=== PATIENT | female | born 1985 | race American Indian/Alaskan Native ===

== ENCOUNTER 2017-02-26 20:27 | Emergency (ER) | payer OTHER ==
[2017-02-26 20:30] VITALS: RESP 16
--- NOTE | 2017-02-26 20:41 | ED PDOC ---
HPI: Back Time Seen by Provider: 02/26/17 20:29 Chief Complaint (Nursing): Back Pain Chief Complaint (Provider): low back pain History Per: Patient Additional Complaint(s): 31-year-old female with no past medical history presents to emergency department with lower back pain that started earlier today after she lifted a heavy laundry basket. Patient took ibuprofen and Flexeril but this did not help the pain. Patient states she is currently and her last period was January 17. She is not sure how many weeks she is. Patient denies any abdominal pain or vaginal bleeding upon arrival. She states she has been lying in bed all day secondary to lower back pain. She denies acute bowel or bladder dysfunction and denies any radiation of pain to lower extremities. Patient states she has had similar episodes of muscle spasms in her lower back. Past Medical History Reviewed: Historical Data, Nursing Documentation, Vital Signs Vital Signs: Last Vital Signs Temp 98.1 F 02/26/17 20:28 Pulse 92 H 02/26/17 20:28 Resp 16 02/26/17 20:28 BP 126/69 02/26/17 20:28 Pulse Ox 100 02/26/17 20:28 - Medical History PMH: Back Problems - Surgical History Surgical History: No Surg Hx - Family History Family History: States: No Known Family Hx - Living Arrangements Living Arrangements: With Family - Social History Current smoker - smoking cessation education provided: No Alcohol: None Drugs: Denies - Home Medications Home Medications: Ambulatory Orders Medication Instructions Recorded Cyclobenzaprine [Cyclobenzaprine 10 mg PO TID PRN #20 tab 02/27/17 HCl] Lidocaine 5% [Lidoderm] 1 ea TD DAILY #30 patch 02/27/17 Comb No.42/Folic Acid 1 tab PO DAILY #60 tab 02/27/17 [Prena1 Chew] - Allergies Allergies/Adverse Reactions: Allergies Allergy/AdvReac Type Severity Reaction Status Date / Time No Known Allergies Allergy Verified 02/26/17 20:28 Review of Systems ROS Statement: Except As Marked, All Systems Reviewed And Found Negative Gastrointestinal: Negative for: Abdominal Pain Genitourinary Female: Negative for: Dysuria, Frequency, Incontinence, Vaginal Discharge, Vaginal Bleeding, Pelvic Pain Musculoskeletal: Positive for: Back Pain Physical Exam - Reviewed Nursing Documentation Reviewed: Yes Vital Signs Reviewed: Yes - Physical Exam Appears: Positive for: Well, Non-toxic, No Acute Distress Skin: Positive for: Normal Color. Negative for: Rash Neck: Positive for: Normal Cardiovascular/Chest: Positive for: Regular Rate, Rhythm Respiratory: Positive for: Normal Breath Sounds Gastrointestinal/Abdominal: Positive for: Soft. Negative for: Tenderness, Distended, Guarding, Rebound Back: Positive for: Vertebral Tenderness (diffuse tenderness and muscle spasm across lower lumbar region), Muscle Spasm (lumbar region) Extremity: Positive for: Normal ROM. Negative for: Pedal Edema, Calf Tenderness Neurologic/Psych: Positive for: Alert, Oriented - Laboratory Results Result Diagrams: 02/26/17 21:34 02/26/17 21:34 - ECG O2 Sat by Pulse Oximetry: 100 Pulse Ox Interpretation: Normal - Other Rad OB TV US X-Ray: Read By Radiologist X-Ray Interpretation: see below Medical Decision Making Medical Decision Making: Impression: lumbar strain Plan: test PO tylenol PO flexeril Lidoderm patch US: FINDINGS: Gestation: There is an early intrauterine with 5 mm gestational sac. No pole or yolk sac are identified at this time. Placenta/amniotic fluid: Cannot be adequately evaluated due to the early gestational age. Uterus/cervix: The uterus measures 9.1 x 4.2 x 5.9 cm. No myometrial mass. Ovaries: The RIGHT ovary measures 2.5 x 1.7 x 1.7 cm. The LEFT ovary measures 2.5 x 1.8 x 2.1 cm. No mass. Free fluid: There is free fluid in the pelvis. IMPRESSION: Early intrauterine ; pole not identified probably due to early gestational age. Followup as clinically warranted. Patient states the back pain is somewhat improved after meds given. She does still have some pain and is feeling better. She is ambulatory with steady gait. Patient aware of ultrasound findings and remaining diagnostic test results. Patient given prescription for vitamins and Flexeril. She was advised to continue with [id number] Tylenol every 4-6 hours for pain. Lidoderm patch prescriptions also provided. Patient has follow-up next week with her OB. Disposition - Clinical Impression Clinical Impression: Back pain, - Patient ED Disposition Is Patient to be Admitted: No Counseled Patient/Family Regarding: Studies Performed, Diagnosis, Need For Followup, Rx Given - Disposition [facility] Disposition: Routine/Home Disposition Time: 00:19 Condition: STABLE Additional Instructions: Take [id number] Tylenol along with prescription medications as directed as needed for pain. Take vitamins as directed. Follow up next week with [facility]. Prescriptions: Cyclobenzaprine [Cyclobenzaprine HCl] 10 mg PO TID PRN #20 tab PRN Reason: Muscle Spasm Lidocaine 5% [Lidoderm] 1 ea TD DAILY #30 patch Comb No.42/Folic Acid [Prena1 Chew] 1 tab PO DAILY #60 tab Instructions: Back Pain (ED), (ED) Forms: [employer] (Icelandic) Results - Lab Results Lab Results: 02/26/17 02/26/17 21:34 21:34 WBC 12.0 H RBC 4.29 Hgb 13.1 Hct 38.5 MCV 89.6 MCH 30.5 MCHC 34.0 RDW 14.4 Plt Count 285 MPV 8.9 Neut % (Auto) 69.4 Lymph % (Auto) 24.0 Tate % (Auto) 6.0 Eos % (Auto) 0.4 Baso % (Auto) 0.2 Neut # 8.3 H Lymph # 2.9 Tate # 0.7 Eos # 0.1 Baso # 0.0 Sodium 140 Potassium 3.9 Chloride 106 Carbon Dioxide 23 Anion Gap 15 BUN 6 L Creatinine 0.7 Est GFR ( Amer) > 60 Est GFR (Non-Af Amer) > 60 Random Glucose 84 Calcium 9.2 Total Bilirubin 0.7 AST 21 ALT 23 Alkaline Phosphatase 85 Total Protein 7.4 Albumin 4.1 Globulin 3.3 Albumin/Globulin Ratio 1.3 Beta HCG, Quant 3023.10
[2017-02-26] MEDS ORDERED: Lidocaine 5% Patch TD STA (21:04)
[2017-02-26] MEDS ORDERED: Lidocaine 5% Patch TD ONE (21:15)
[2017-02-26 21:45] LABS: BASO % 0.2 % (0.0-2.0); EOS # 0.1 K/uL (0.0-0.7); EOS % 0.4 % (0.0-4.0); HEMATOCRIT 38.5 % (34.0-47.0); LYMPH # 2.9 K/uL (1.0-4.3); MEAN CELL VOLUME 89.6 fl (81.0-99.0); MEAN CORPUSCULAR HEMOGLOBIN 30.5 pg (27.0-31.0); MEAN PLATELET VOLUME 8.9 fl (7.2-11.7); MONO # 0.7 K/uL (0.0-0.8); NEUT # 8.3 K/uL (1.8-7.0); NEUT % 69.4 % (50.0-75.0); RED CELL DISTRIBUTION WIDTH 14.4 % (11.5-14.5)
[2017-02-26 21:50] LABS: ALB/GLOB RATIO 1.3 (1.0-2.1); ALKALINE PHOSPHATASE 85 U/L (38-126); ALT/SGPT 23 U/L (9-52); AST/SGOT 21 U/L (14-36); BILIRUBIN,TOTAL 0.7 mg/dl (0.2-1.3); BLOOD UREA NITROGEN 6 mg/dl (7-17); CALCIUM 9.2 mg/dL (8.4-10.2); CARBON DIOXIDE 23 mmol/L (22-30); CHLORIDE 106 mmol/L (98-107); GFR AFRICAN-AMERICAN > 60; GLUCOSE,RANDOM 84 mg/dL (65-105); POTASSIUM 3.9 MMOL/L (3.6-5.0); SODIUM 140 mmol/l (132-148); TOTAL PROTEIN 7.4 G/DL (6.3-8.2)
[2017-02-27 00:38] VITALS: BP 130/65; PULSE 81; TEMP 98; O2SAT 99
--- NOTE | 2017-02-27 11:02 | US ---
HISTORY: Early (positive test) presenting with back pain. Menstrual status: LMP 01/17/2017 Relevant medical history: History of scoliosis. COMPARISON: None available. TECHNIQUE: Standard protocol for this study/examination. FINDINGS: UTERUS: Measures 4.2 x 5.9 x 9.1 cm. Normal in size and appearance. No fibroid or other mass lesion seen. ENDOMETRIUM: Gestational sac measurement 5.1 mm below threshold for calculation of reliable gestational age. No pole or yolk sac identified CERVIX: No cervical abnormality identified. RIGHT OVARY: Measures 1.7 x 1.7 x 2.5 cm. No solid mass. Normal flow. LEFT OVARY: Measures 1.8 x 2.1 x 2.5 cm. No solid mass. Normal flow. FREE FLUID: Trace free fluid identified in the pelvis/cul de sac. Fluid ulcer adjacent to the left ovary OTHER FINDINGS: None. IMPRESSION: Presumed early intrauterine gestation. Gestational sac without evidence of yolk sac or pole. Additional benign and/or incidental findings described above.
== END 2017-02-27 00:43 | disposition home or self-care (01) ==
LOC: H.ER 20:27
DX: M54.5 Low back pain (principal); O26.891 Other specified pregnancy related conditions, first trimester

== ENCOUNTER 2017-10-15 18:26 | Emergency (ER) | payer OTHER ==
[2017-10-15 19:32] VITALS: BMI 30.1
[2017-10-15 20:29] LABS: ALBUMIN 3.4 g/dL (3.5-5.0); ALT/SGPT 31 U/L (9-52); AST/SGOT 30 U/L (14-36); BLOOD UREA NITROGEN 3 mg/dl (7-17); CALCIUM 9.6 mg/dL (8.4-10.2); GFR AFRICAN-AMERICAN > 60; GFR NON-AFRICAN AMERICAN > 60; HEMOGLOBIN 12.9 g/dL (12.0-16.0); MEAN CELL VOLUME 95.3 fl (81.0-99.0); MEAN CORPUSCULAR HEMOGLOBIN 32.3 pg (27.0-31.0); MEAN CORPUSCULAR HGB CONC 33.9 g/dL (33.0-37.0); RBC 3.99 Mil/uL (3.80-5.20); RED CELL DISTRIBUTION WIDTH 16.8 % (11.5-14.5); WHITE BLOOD COUNT 8.4 K/uL (4.8-10.8)
[2017-10-15 20:41] LABS: SQUAMOUS EPITHIAL 28 /hpf (0-5); URINE BACTERIA OCC (<OCC); URINE BILIRUBIN NEGATIVE (NEGATIVE); URINE BLOOD NEGATIVE (NEGATIVE); URINE CLARITY CLOUDY (Clear); URINE COLOR YELLOW (YELLOW); URINE GLUCOSE (UA) NEG (Normal); URINE LEUKOCYTE ESTERASE MOD Leu/uL (Negative); URINE PROTEIN NEGATIVE (NEGATIVE)
--- NOTE | 2017-10-15 22:18 | US ---
EXAM: US Uterus, Limited CLINICAL HISTORY: 31 years old, female; Signs and symptoms; Other: Decreased movement; TECHNIQUE: Real-time ultrasound of the maternal uterus (limited) with image documentation. COMPARISON: No relevant prior studies available. FINDINGS: Fetus: Single live intrauterine gestation. No gross anomaly is appreciated. Gestational age: Estimated gestational age of 38 weeks 5 days by dates. Position: Cephalic. Heart rate: heart rate of 139 beats per minute. Placenta: Fundal placenta. No placenta previa or abruption. Amniotic fluid: RAHEL = 20.7 cm. IMPRESSION: 1. Single live intrauterine gestation. EXAM: US Biophysical Profile Without Non-Stress Testing CLINICAL HISTORY: 31 years old, female; Signs and symptoms; Other: Decreased movement; TECHNIQUE: Real-time ultrasound of the maternal pelvis for biophysical profile evaluation with image documentation. COMPARISON: No relevant prior studies available. FINDINGS: breathing movements: Present. Score 2/2. Gross body movements: Present. Score 2/2. tone: Present. Score 2/2. Qualitative amniotic fluid volume: Within normal limits. Score 2/2. IMPRESSION: Normal biophysical profile ultrasound. Score 8/8.
--- NOTE | 2017-10-15 22:26 | OBHP ---
Datetime: 10/15/2017 19:35 IP Adm Impression: Term, intrauterine IP Admit Plan: Observation/Evaluation Admit Comment, IP Provider: 31 yo , IUP at 38.5 weeks gestational age presented to [facility] due to B P reading at home 140/96. Denies dizziness, blurry vision, headache, epigastric pain, vaginal bleedin g, regular contractions, loss of fluid. States she felt movement earlier in the day but less at this time. ROS: as per HPI, denies burning with urination, chest pain, shortness of breath, nausea/vomiting/G I upset. OBhx: G1 PMH: anxiety Past surg hx: none Fam hx: htn, dm2 in multiple family members Social hx: denies tobacco, alcohol, drug use Meds: PNV, ferrous sulfate, was taking lexapro for anxiety early in Allergies: NKDA care: has been w/ Dr. Kim until now; has appt with Dr. Long tomorrow States has been uncomplicated thus far. GBS+ bacteruria; rubella immune, 3rd trimester RPR neg, 3rd trimester HIV neg. PE: BP 121/84 FHR baseline 140, reactive Gen: alert, awake Resp: clear breath sounds, normal effort CV: S1S2, RRR Abd: gravid, +bowel sounds, no epigastric or RUQ tenderness Ext: 1+ pitting edema, no tenderness, no swelling SVE: closed, thick, -3 A/P 31 yo with IUP at 38.5 weeks gestational age Monitor BP; Lab: CBC, CMP, LDH, type and screen, urinalysis. U/s: BPP with RAHEL level Re-eval Pt seen/discussed w/ Dr. Kim Re-eval 21:55 LDH low 280, LFT wnl, Hgb 12.9, Plt 204. Urine pos for leuk esterase, occ bacteria, neg nitrates. BPP 8/8, RAHEL 21. BPs have [id number] 130s/80s while on monitor Clean catch urine sample sent for cx Reviewed labs w/ patient, gave preeclampsia precautions, labor precautions, kick counts To follow up w/ Dr. Hanna in office tomorrow Pt seen/discussed w/ Dr. Judy [email or web address] ob attending addendum: pt seen _ examined by me. agree w/ above s:denies h/a, scotomata, ruq/midepigastric pain,n/v, decreased fm, srom or vag bleeding o:bpp 8/8 rahel 20 vtx p: d/c home preeclamptic precautions urine cx- pt advised to f/u for results w/ dr hanna kick counts _ labor precautions Pelvic Type - PN: Adequate Extremities - PN: Normal Abdomen - PN: Normal Back - PN: Normal Breast - PN: Not Done Lungs - PN: Normal Heart - PN: Normal Thyroid - PN: Not Done Neurologic - PN: Normal HEENT - PN: Normal General - PN: Normal FHR - Baseline A Provider: 140 Membranes, Provider: Intact Contraction Comments Provider: not appreciated by pt Comments, ACOG Physical Exam: SVE: closed, thick, -3 EGA AdmitDate IP: 38.5 Vital Signs Provider: Reviewed IP Chief Complaint: Signs/Symptoms Gestational HTN NICHD Variability Prov Fetus A: Moderate 6-25bpm NICHD Accel Fetus A IP Provider: [id number] FHR Category Provider Fetus A: Category I NICHD Decel Fetus A IP Provider: None Dilatation, Provider: 0 Effacement, Provider: thick Station, Provider: -3 Genitourinary Exam: Normal
[2017-10-16 02:05] VITALS: BP 132/86; PULSE 85; RESP 18; TEMP 98.3; O2SAT 100
== END 2017-10-15 22:03 | disposition home or self-care (01) ==
LOC: H.EROB2 18:26
DX: O26.93 Pregnancy related conditions, unspecified, third trimester (principal); I10 Essential (primary) hypertension; Z3A.38 38 weeks gestation of pregnancy

== ENCOUNTER 2017-10-27 07:00 | Inpatient (IN) | payer OTHER ==
[2017-10-27 07:34] VITALS: BMI 31.1
[2017-10-27] MEDS: Lactated Ringer's 1,000 ML IV SCH ×2 (07:50→23:11)
[2017-10-27 08:31] LABS: BASO % 0.5 % (0.0-2.0); EOS % 0.4 % (0.0-4.0); HEMOGLOBIN 13.1 g/dL (12.0-16.0); LYMPH # 2.2 K/uL (1.0-4.3); MEAN CELL VOLUME 91.8 fl (81.0-99.0); MEAN CORPUSCULAR HEMOGLOBIN 31.9 pg (27.0-31.0); MEAN CORPUSCULAR HGB CONC 34.8 g/dL (33.0-37.0); MEAN PLATELET VOLUME 10.4 fl (7.2-11.7); MONO # 0.6 K/uL (0.0-0.8); MONO % 6.5 % (0.0-10.0); NEUT # 7.1 K/uL (1.8-7.0); NEUT % 70.6 % (50.0-75.0); NRBC % 0.3 % (0.0-0.0); RBC 4.1 Mil/uL (3.80-5.20)
[2017-10-27] MEDS ORDERED: Fentanyl/Bupivacaine HCl 250 ML EPI ONE (16:02)
[2017-10-27] MEDS ORDERED: Oxytocin 30 units/LR 500ML 30 U/500 ML BAG IV ONE (18:18)
[2017-10-27] MEDS ORDERED: Lidocaine 2% Inj (20ml) ONE (21:53)
--- NOTE | 2017-10-27 22:35 | OBADHP ---
Datetime: 10/15/2017 19:35 Admit Comment, IP Provider: 31 yo , IUP at 38.5 weeks gestational age presented to [facility] due to B P reading at home 140/96. Denies dizziness, blurry vision, headache, epigastric pain, vaginal bleedin g, regular contractions, loss of fluid. States she felt movement earlier in the day but less at this time. ROS: as per HPI, denies burning with urination, chest pain, shortness of breath, nausea/vomiting/G I upset. OBhx: G1 PMH: anxiety Past surg hx: none Fam hx: htn, dm2 in multiple family members Social hx: denies tobacco, alcohol, drug use Meds: PNV, ferrous sulfate, was taking lexapro for anxiety early in Allergies: NKDA care: has been w/ Dr. Kim until now; has appt with Dr. Long tomorrow States has been uncomplicated thus far. GBS+ bacteruria; rubella immune, 3rd trimester RPR neg, 3rd trimester HIV neg. PE: BP 121/84 FHR baseline 140, reactive Gen: alert, awake Resp: clear breath sounds, normal effort CV: S1S2, RRR Abd: gravid, +bowel sounds, no epigastric or RUQ tenderness Ext: 1+ pitting edema, no tenderness, no swelling SVE: closed, thick, -3 A/P 31 yo with IUP at 38.5 weeks gestational age Monitor BP; Lab: CBC, CMP, LDH, type and screen, urinalysis. U/s: BPP with RAHEL level Re-eval Pt seen/discussed w/ Dr. Kim Re-eval 21:55 LDH low 280, LFT wnl, Hgb 12.9, Plt 204. Urine pos for leuk esterase, occ bacteria, neg nitrates. BPP 8/8, RAHEL 21. BPs have [id number] 130s/80s while on monitor Clean catch urine sample sent for cx Reviewed labs w/ patient, gave preeclampsia precautions, labor precautions, kick counts To follow up w/ Dr. Hanna in office tomorrow Pt seen/discussed w/ Dr. Judy [email or web address] ob attending addendum: pt seen _ examined by me. agree w/ above s:denies h/a, scotomata, ruq/midepigastric pain,n/v, decreased fm, srom or vag bleeding o:bpp 8/8 rahel 20 vtx p: d/c home preeclamptic precautions urine cx- pt advised to f/u for results w/ dr hanna kick counts _ labor precautions Pelvic Type - PN: Adequate Extremities - PN: Normal Abdomen - PN: Normal Back - PN: Normal Breast - PN: Normal Lungs - PN: Normal Heart - PN: Normal Thyroid - PN: Not Done Neurologic - PN: Normal HEENT - PN: Normal General - PN: Normal FHR - Baseline A Provider: 140 Membranes, Provider: Intact Contraction Comments Provider: not appreciated by pt Comments, ACOG Physical Exam: SVE: closed, thick, -3 Vital Signs Provider: Reviewed IP Chief Complaint: Signs/Symptoms Gestational HTN NICHD Variability Prov Fetus A: Moderate 6-25bpm NICHD Accel Fetus A IP Provider: [id number] FHR Category Provider Fetus A: Category I NICHD Decel Fetus A IP Provider: None Dilatation, Provider: 0 Effacement, Provider: thick Station, Provider: -3 Genitourinary Exam: Normal DTRs - PN: Normal EGA AdmitDate IP: 38.5 IP Adm Impression: Term, intrauterine IP Admit Plan: Observation/Evaluation
--- NOTE | 2017-10-27 22:39 | OBDS ---
MATERNAL INFORMATION Provider Comments: dewlivery of live baby girl 9/9 clear fluid first degree perineal laceratio n and repair LABOR SUMMARY EDC: 10/24/2017 00:00 No. Babies in Womb: 1 Attempted: No LABOR INFORMATION Reason for Induction: Postterm Cervical Ripening Agents: carvidil removed by dr perrin at this time Group B Beta Strep: Positive Steroids Given: None Reason Steroids Not Administered: Not Applicable MEMBRANES Membranes Rupture Method: Artificial Rupture of Membranes: 10/27/2017 14:18 Amniotic Fluid Color: Clear Amniotic Fluid Amount: Moderate Amniotic Fluid Odor: Normal VAGINAL DELIVERY Episiotomy: None Laceration Extension: N/A Laceration Type: Perineal Laceration Repair Note: repair of perineal laceration with 2-0 chromic Count Comment: correct
[2017-10-27] MEDS ORDERED: Oxycodone/Acetaminophen 5/325 mg Tab PO PRN ×2 (22:44)
[2017-10-27] MEDS ORDERED: Benzocaine/Menthol SPRAY TOP PRN (22:44)
[2017-10-28] MEDS ORDERED: Oxycodone/Acetaminophen 5/325 mg Tab PO PRN ×3 (03:20→13:41)
[2017-10-28] MEDS ORDERED: Benzocaine/Menthol SPRAY TOP PRN ×2 (03:20→13:41)
[2017-10-28 07:00] LABS: BASO % 0.2 % (0.0-2.0); HEMOGLOBIN 12.3 g/dL (12.0-16.0); LYMPH # 1.7 K/uL (1.0-4.3); LYMPH % 10.7 % (20.0-40.0); MEAN CELL VOLUME 89.9 fl (81.0-99.0); MEAN CORPUSCULAR HGB CONC 35.6 g/dL (33.0-37.0); MEAN PLATELET VOLUME 9.7 fl (7.2-11.7); MONO % 6.1 % (0.0-10.0); NEUT # 13.4 K/uL (1.8-7.0); NRBC % 0.1 % (0.0-0.0); RBC 3.85 Mil/uL (3.80-5.20); RED CELL DISTRIBUTION WIDTH 16.8 % (11.5-14.5); WHITE BLOOD COUNT 16.2 K/uL (4.8-10.8)
--- NOTE | 2017-10-28 14:23 | OBPPN ---
Datetime: 10/28/2017 14:19 PP Pain Prov: Within normal limits PP Nausea Prov: Denies PP Flatus Prov: Yes PP BM Prov: No PP Breasts Prov: Normal PP Heart Prov: Normal PP Lungs Prov: Normal PP Abdomen/Uterus Prov: Normal PP Lochia Prov: Normal PP Vulva/Perineum Prov: Normal PP CVA Tenderness Prov: Normal PP Extremities Prov: Normal PP Progress Prov: Normal PP Impression Prov: Normal progression PP Plan Prov: Continue present management PP Progress Note Prov: stable ppd1 no complaints today continue present care IP PP Procedures: None Vital Signs Provider PP: Reviewed; Within Normal Limits
[2017-10-29 07:35] LABS: BASO # 0.1 K/uL (0.0-0.2); BASO % 0.6 % (0.0-2.0); EOS # 0.1 K/uL (0.0-0.7); EOS % 1.1 % (0.0-4.0); HEMOGLOBIN 14.3 g/dL (12.0-16.0); LYMPH # 3.5 K/uL (1.0-4.3); LYMPH % 28.1 % (20.0-40.0); MEAN CELL VOLUME 91.5 fl (81.0-99.0); MEAN CORPUSCULAR HEMOGLOBIN 32.4 pg (27.0-31.0); MEAN CORPUSCULAR HGB CONC 35.4 g/dL (33.0-37.0); MEAN PLATELET VOLUME 10.3 fl (7.2-11.7); MONO # 0.6 K/uL (0.0-0.8); MONO % 4.8 % (0.0-10.0); NEUT # 8.1 K/uL (1.8-7.0); NEUT % 65.4 % (50.0-75.0); NRBC % 0.3 % (0.0-0.0); RBC 4.42 Mil/uL (3.80-5.20); WHITE BLOOD COUNT 12.3 K/uL (4.8-10.8)
--- NOTE | 2017-10-29 15:03 | OBPPN ---
Datetime: 10/29/2017 14:59 PP Pain Prov: Within normal limits PP Nausea Prov: Denies PP Flatus Prov: Yes PP BM Prov: Yes PP Breasts Prov: Normal PP Heart Prov: Normal PP Lungs Prov: Normal PP Abdomen/Uterus Prov: Normal PP Lochia Prov: Normal PP Vulva/Perineum Prov: Normal PP CVA Tenderness Prov: Normal PP Extremities Prov: Normal PP Progress Prov: Normal PP Impression Prov: Normal progression PP Plan Prov: Continue present management PP Progress Note Prov: stable ppd2 bp 121/70 IP PP Procedures: None Vital Signs Provider PP: Reviewed; Within Normal Limits
--- NOTE | 2017-10-29 15:12 | OBDCSUM ---
Datetime: 10/29/2017 15:08 Discharged to, Provider: Home Follow up at, Provider: Disch Instr Activity: Bedrest; May be up to bathroom; May be up for meals; May Shower Disch Instr Diet: Regular Discharge Instructions, Provider: Specific instructions as noted Discharge Diagnosis, Provider: Term Delivered Discharge Time: 10/29/2017 15:08 Follow up in weeks, Provider: 1week Disch Referrals: None Disch Activity Restrictions: No exercising; No lifting; No driving; Minimize walking; Minimize stair -climbing; No sexual activity; Nothing in vagina - Counce, tampons, douche Discharge Comment, Provider: violet home today rto 1week call office if any problems Contraception after Delivery: Undecided
[2017-10-30 01:19] VITALS: BP 149/78; PULSE 93; RESP 20; TEMP 97.5; O2SAT 99
== END 2017-10-29 16:40 | disposition home or self-care (01) | DRG 775 ==
LOC: H.EROB2 07:00 → H.L&D 07:28 → H.EROB2 07:34 → H.L&D 07:35 → H.OB/GYN 10-28 01:50
PROVIDERS: ADMIT Specialist; ATTEND Specialist
PROC: 10E0XZZ Delivery of Products of Conception, External Approach (ICD-10-PCS; principal; 2017-10-27)
PROC: 0HQ9XZZ Repair Perineum Skin, External Approach (ICD-10-PCS; 2017-10-27)
PROC: 4A1HXCZ Monitoring of Products of Conception, Cardiac Rate, External Approach (ICD-10-PCS; 2017-10-27)
DX: O48.0 Post-term pregnancy (principal); O70.0 First degree perineal laceration during delivery; Z37.0 Single live birth; Z3A.40 40 weeks gestation of pregnancy; O13.4 Gestational [pregnancy-induced] hypertension without significant proteinuria, complicating childbirth